=== PATIENT | female | born 1995 | race Caucasian/White ===

== ENCOUNTER 2019-08-02 19:10 | Observation (INO) | payer BC, OTHER ==
[2019-08-02 19:59] LABS: Appearance,Urine Clear (Clear); Bilirubin,Urine Negative (Negative); Blood,Urine Negative (Negative); Color,Urine Yellow; Glucose,Urine (UA) Negative (Negative); Ketones,Urine Negative (Negative); Leukocyte Esterase,Urine Negative (Negative); Nitrite,Urine Negative (Negative); PH, Urine 6.5 (5.0-8.0); Protein,Urine Negative (Negative); Specific Gravity,Urine 1.013 (1.001-1.035); Urobilinogen,Urine <2.0 mg/dL (<2.0)
[2019-08-02 20:50] LABS: Basophils % (A) 0 %; Eosinophils # (A) 0.1 k/uL (0-0.7); Eosinophils % (A) 1 %; HCT 35.7 % (34.0-46.0); HGB 11.7 gm/dL (11.4-16.0); Lymphocytes # (A) 2.4 k/uL (1.0-4.8); Lymphocytes % (A) 23 %; MCHC 32.8 g/dL (31.0-37.0); MCV 88.3 fL (80.0-100.0); Mean Platelet Volume 7.4; Monocytes # (A) 0.4 k/uL (0-1.0); Monocytes % (A) 3 %; Neutrophils # (A) 7.6 k/uL (1.3-7.7); Neutrophils % (A) 71 %; Platelet Count 293 k/uL (150-450); RBC 4.04 m/uL (3.80-5.40); WBC 10.7 k/uL (3.8-10.6)
[2019-08-02 21:04] LABS: African American GFR (CKD) >90 (>60 ml/min/1.73 sqM); Non-African American GFR(CKD) >90 (>60 ml/min/1.73 sqM)
[2019-08-02 22:26] LABS: Blood Urea Nitrogen 4 mg/dL (7-17)
[2019-08-02 22:27] LABS: ALT 16 U/L (4-34); AST 22 U/L (14-36); LDH 502 U/L (313-618); Uric Acid 2.2 mg/dL (3.7-7.4)
--- NOTE | 2019-08-02 22:37 | P.HPOB ---
History of Present Illness H&P Date: 08/02/19 Chief Complaint: Intrauterine at 34 weeks: Gestational hypertension Patient is a 23-year-old G 2 P1 at 34 weeks 5 days gestation who called complaining of a mild headache that was not improving through the day and when she checked her blood pressure at home she noted it was 150/113. She was instructed to report immediately to labor and delivery for evaluation. Upon arriving to labor and delivery blood pressures were all minimally elevated in the range of 140/90-100. She has no other signs or symptoms of preeclampsia. She denies headache at this time. No epigastric pain or visual changes deep tendon reflexes are 2+. Preeclamptic labs were drawn and essentially were all normal. She does have protein creatinine ratio of 0.2 which is also normal. As precaution with new onset gestational hypertension with no other findings we are admitting her overnight for continued blood pressure evaluation and if everything is normal most likely she will be discharged to home in the morning. All questions are answered for her at this time and she understands current condition and treatment plan. In discussing course with her she relates that she is had no other problems with the and has not previously had any elevations in her blood pressure. She does relate that she is late care. She also is noted to have suspected preeclampsia with her last at 39 weeks in which she had elevated blood pressure and 3+ protein in her urine. This is another reason why we are being very cautious with her in admitting her to the hospital. On physical exam her vital signs are currently stable with minimal elevation blood pressure. Heart regular, lungs clear, extremities without pain. Abdomen is soft and nontender. Positive bowel sounds are noted. Gravid uterus noted. heart tones reveal a category 1 tracing. Assessment intrauterine at 34 weeks 5 days gestation with new onset gestational hypertension [facility] Past Medical History Past Medical History: No Reported History Additional Past Medical History / Comment(s): Obstetric history: Oneg, abs neg, Rub Imm, RPR NR, Hep B neg. EDC 6-9-14 by 17 week US. declined quad. neg GBS and normal 1hr GTT. History of Any Multi-Drug Resistant Organisms: None Reported Past Surgical History: No Surgical Hx Reported Smoking Status: Never smoker - Past Family History Father Family Medical History: Blood Disorder Additional Family Medical History / Comment(s): blood clotting disorder Medications and Allergies Allergies Allergy/AdvReac Type Severity Reaction Status Date / Time No Known Allergies Allergy Verified 08/02/19 19:35 Exam Osteopathic Statement: *. No significant issues noted on an osteopathic structural exam other than those noted in the History and Physical/Consult. Vital Signs Temp Pulse Resp BP Pulse Ox 08/02/19 22:07 97.6 F 90 16 155/87 98 Intake and Output 08/02/19 08/02/19 08/02/19 06:59 14:59 22:59 Other: Weight 87.543 kg - OBG Physical Exam Breast: both: normal (no masses) Abdomen: bowel sounds normal, no diffuse tenderness, no bruit present, no guarding noted, no hepatomegaly, no splenomegaly, no mass Vulva: both: normal Vagina: normal moisture, no discharge Cervix: no lesion, no discharge Uterus: normal size, normal contour Adnexa: both: normal Anus/Rectum: normal perianal skin, no rectal mass, no hemorrhoids, heme negative Results Result Diagrams: 08/02/19 20:25 08/02/19 20:25 Abnormal Lab Results - Last 24 Hours (Table) 08/02/19 08/02/19 08/02/19 Range/Units 19:25 20:25 20:25 WBC 10.7 H (3.8-10.6) k/uL BUN 4 L (7-17) mg/dL Creatinine 0.49 L (0.52-1.04) mg/dL Uric Acid 2.2 L (3.7-7.4) mg/dL U Random Total Protein 16 H (<12) mg/dL
[2019-08-03 08:04] VITALS: BP 135/83; PULSE 86; RESP 16; TEMP 98.9
[2019-08-03] MEDS ORDERED: BETAMET ACET-BETAMETH SOD PHOS 6 MG/ML VIAL IM SCH (08:15)
--- NOTE | 2019-08-03 09:21 | US ---
EXAMINATION TYPE: US OB limited DATE OF EXAM: 08/03/2019 COMPARISON: NONE CLINICAL HISTORY: gestational hypertension-need HANNA and EFW. Hypertension, 2, para 1 EXAM PERFORMED: Transabdominal (TA) GESTATIONAL AGE / DATING Physician Established: (34 weeks/6 days) EDC: 09/08/2019 Dates by Current Scan: (33 weeks/2 days) EDC: 09/19/2019 SURVEY HANNA: 10.5 cm Normal Ultrasound evidence of premature rupture of membranes? no HEART RATE: 135 bpm RHYTHM: Normal BPD: 8.7 cm 35 weeks / 1 days HC: 31.7 cm 35 weeks / 4 days AC: 27.6 cm 31 weeks / 5 days FL: 6.3 cm 32 weeks / 4 days ESTIMATED WEIGHT IN GRAMS: 2019 grams ESTIMATED WEIGHT IN LBS/OZ: 4 lbs. 7 oz. WEIGHT PERCENTAGE BASED ON ESTABLISHED DATES: 4.7% Live single IUP measuring 33 weeks 2 days with a heart rate of 135bpm and an estimated delivery date of 09/19/2019. IMPRESSION: Single live intrauterine with a sonographic age of 33 weeks and 2 days and est imated date of delivery of 09/19/2019. Heart rate of 135 bpm. Amniotic fluid index is within normal li mits. Weight percentage based on established dates of only 4.7%. Estimated weight of 4 pounds a nd 7 ounces.
--- NOTE | 2019-08-04 08:26 | P.DS ---
Providers Date of admission: 08/02/19 22:32 Expected date of discharge: 08/03/19 Attending physician: Sang Meredith Primary care physician: Amanda Colmenares - Discharge Diagnosis(es) (1) Gestational hypertension Status: Acute Hospital Course: Patient was admitted for elevated blood pressures and rule out preeclampsia. Her preeclamptic labs were normal and her headache did resolve. Her blood pressures normalized to 130s over 80s when she was here. She was given one dose of Celestone and did have an ultrasound that showed normal amounts of fluid. She will come again tomorrow for her second dose of Celestone and a blood pressure check and NST. She is discharged home today with the understanding of signs and symptoms of preeclampsia and that she is to return to hospital with any of these. She'll follow up tomorrow and then again on Wednesday. Patient Condition at Discharge: Good Plan - Discharge Summary Discharge Disposition: HOME SELF-CARE
== END 2019-08-03 11:05 | disposition home or self-care (01) ==
LOC: FBPOP 19:10 → 4FBP 22:32
PROVIDERS: ADMIT Obstetrics & Gynecology; ATTEND Obstetrics & Gynecology
DX: O13.3 Gestational [pregnancy-induced] hypertension without significant proteinuria, third trimester (principal); Z3A.34 34 weeks gestation of pregnancy; Z83.2 Family history of diseases of the blood and blood-forming organs and certain disorders involving the immune mechanism
CPT/HCPCS: 59025; 99215; 96372; 82570; 84156; 82565; 83615; 84450; 84460; 84520; 84550; 85025; 81003; 76815; G0378 ×2; J0702

== ENCOUNTER 2019-08-04 08:31 | Outpatient (CLI) | payer BC ==
[2019-08-04] MEDS ORDERED: BETAMET ACET-BETAMETH SOD PHOS 6 MG/ML VIAL IM SCH (08:45)
[2019-08-04 09:56] VITALS: BP 141/91; PULSE 122; RESP 14; TEMP 97.5
--- NOTE | 2019-08-08 17:06 | P.MSEPDOC ---
Presenting Problems - Arrival Data Date of Arrival on Unit: 08/04/19 Time of Arrival on Unit: 09:12 Mode of Transport: Ambulatory - Complaint OB-Reason for Admission/Chief Complaint: NST, Celestone Injection Medical History - Information : 2 Para: 1 Term: 1 : 0 Abortions: Spontaneous or Elective: 0 Number of Living Children: 1 - Gestational Age Gestational Age by LAURYN (wks/days): 35 Weeks and 0 Days Review of Systems - Review of Systems Constitutional: No problems Breast: No problems ENT: No problems Cardiovascular: No problems Respiratory: No problems Gastrointestinal: No problems Genitourinary: No problems Musculoskeletal: No problems Neurological: No problems Skin: No problems Vital Signs - Temperature Temperature: 97.5 F Temperature Source: Tympanic - Pulse Right Brachial Pulse Rate: 122 Pulse Assessment Method: Automatic Cuff - Respirations Respiratory Rate: 14 Oxygen Delivery Method: Room Air - Blood Pressure Right Arm Blood Pressure: 141/91 Blood Pressure Mean: 107 Blood Pressure Source: Automatic Cuff Medical Screen Scoring (Pre) - Cervical Exam Dilation: Exam Deferred Effacement: Exam Deferred Membranes: Intact - Uterine Contractions Frequency: N/A Duration: N/A Intensity: N/A - Maternal Vital Signs Maternal Temperature: N/A Maternal Blood Pressure: N/A Signs of Preeclampsia: N/A Maternal Respirations: N/A - Maternal Trauma Maternal Trauma: N/A - Assessment - Baby A Baseline FHR: 135 Heart Rate - NICHD Category: Category I (Normal) = 0 NST: Reactive Position: N/A Station: N/A - Total Score - Baby A Total Score - Baby A: 0 - Total Score - Baby B Total Score - Baby B: 0 - Total Score - Baby C Total Score - Baby C: 0 - Level of Risk - Baby A Level of Risk - Baby A: Low (0-5) - Level of Risk - Baby B Level of Risk - Baby B: Low (0-5) - Level of Risk - Baby C Level of Risk - Baby C: Low (0-5) Physician Notification (Pre) - Physician Notified Physician Notified Date: 08/04/19 Physician Notified Time: 09:12 New Order Received: Yes - Notification Comment Comment: d/c home,. follow up pressures, 122/62 and 132/86 before discharge Disposition - Disposition OB Disposition: Discharge to home Discharge Date: 08/04/19 Discharge Time: 09:16 I agree with the RN Medical Screening Exam: Yes Risk & Benefit of care provided described in d/c instruction: Yes Diagnosis: LABOR WITHOUT DELIVERY, THIRD TRIMESTER
== END 2019-08-04 09:16 | disposition home or self-care (01) ==
LOC: FBPOP 08:31
PROVIDERS: ATTEND Obstetrics & Gynecology
DX: O60.03 Preterm labor without delivery, third trimester (principal); Z3A.35 35 weeks gestation of pregnancy
CPT/HCPCS: 59025; 96372; J0702; 99213

== ENCOUNTER 2019-08-21 05:58 | Inpatient (IN) | payer BC ==
[2019-08-21] MEDS ORDERED: METHYLERGONOVINE 0.2 MG/ML 1 ML AMP IM PRN (06:06)
[2019-08-21] MEDS ORDERED: TERBUTALINE 1 MG/ML VIAL SQ PRN (06:06)
[2019-08-21] MEDS ORDERED: OXYTOCIN 10 UNIT/ML 1 ML VIAL IM PRN (06:06)
[2019-08-21] MEDS ORDERED: LIDOCAINE 0.5% (PF) 5 MG/ML (50 ML SDV) SQ PRN (06:06)
[2019-08-21] MEDS ORDERED: CARBOPROST TROMETHAMINE 250 MCG/ML 1 ML AMP IM PRN (06:06)
[2019-08-21] MEDS ORDERED: OXYTOCIN 30 UNITS/500 ML NS 30 UNIT in SALINE 1 500ML.BAG IV SCH (06:15)
[2019-08-21] MEDS: LACTATED RINGERS 1,000 ML IV SCH ×2 (06:34→11:23)
[2019-08-21 07:29] LABS: Basophils % (A) 0 %; Eosinophils # (A) 0.1 k/uL (0-0.7); Eosinophils % (A) 1 %; HCT 38.3 % (34.0-46.0); HGB 12.3 gm/dL (11.4-16.0); Lymphocytes # (A) 2.4 k/uL (1.0-4.8); Lymphocytes % (A) 20 %; MCHC 32.2 g/dL (31.0-37.0); MCV 86.8 fL (80.0-100.0); Mean Platelet Volume 7.4; Monocytes # (A) 0.4 k/uL (0-1.0); Monocytes % (A) 4 %; Neutrophils # (A) 8.9 k/uL (1.3-7.7); Neutrophils % (A) 74 %; Platelet Count 331 k/uL (150-450); RBC 4.41 m/uL (3.80-5.40); RDW 14.4 % (11.5-15.5)
[2019-08-21] MEDS ORDERED: fentaNYL (PF) 50 MCG/ML 5 ML AMP ONE (11:10)
[2019-08-21] MEDS ORDERED: SODIUM CHLORIDE 0.9% 100 ML BAG ONE (11:10)
[2019-08-21] MEDS ORDERED: ROPIVACAINE 5MG/ML 20ML VIAL ONE (11:10)
--- NOTE | 2019-08-21 18:40 | P.HPOB ---
History of Present Illness H&P Date: 08/21/19 Chief Complaint: Induction of labor 23 year old presents at 37 weeks 3 days for induction of labor for gestational hypertension. HEr cervix is 1-2/80/-2. SHe is not randell. heart tones 130 with moderate variability and reactive. Review of Systems All systems: negative Constitutional: Denies chills, Denies fever Eyes: denies blurred vision, denies pain Ears, nose, mouth and throat: Denies headache, Denies sore throat Cardiovascular: Denies chest pain, Denies shortness of breath Respiratory: Denies cough Gastrointestinal: Denies abdominal pain, Denies diarrhea, Denies nausea, Denies vomiting Genitourinary: Denies dysuria, Denies hematuria Musculoskeletal: Denies myalgias Integumentary: Denies pruritus, Denies rash Neurological: Denies numbness, Denies weakness Psychiatric: Denies anxiety, Denies depression Endocrine: Denies fatigue, Denies weight change Past Medical History Past Medical History: No Reported History Additional Past Medical History / Comment(s): Obstetric history: First was a vaginal delivery. This is her second and she had care with me since 26 weeks. Oneg, abs neg, Rub Imm, RPR NR, Hep B neg. normal 1hr. History of Any Multi-Drug Resistant Organisms: None Reported Past Surgical History: No Surgical Hx Reported Past Anesthesia/Blood Transfusion Reactions: No Reported Reaction Past Psychological History: No Psychological Hx Reported Smoking Status: Never smoker Past Alcohol Use History: None Reported Past Drug Use History: None Reported - Past Family History Father Family Medical History: Blood Disorder Additional Family Medical History / Comment(s): blood clotting disorder Medications and Allergies Home Medications Medication Instructions Recorded Confirmed Type No Known Home Medications 08/04/19 08/21/19 History Allergies Allergy/AdvReac Type Severity Reaction Status Date / Time No Known Allergies Allergy Verified 08/21/19 06:06 Exam Osteopathic Statement: *. No significant issues noted on an osteopathic structural exam other than those noted in the History and Physical/Consult. Vital Signs Temp Pulse Resp BP Pulse Ox 08/21/19 06:11 98.9 F 106 H 18 140/99 97 Intake and Output 08/21/19 08/21/19 08/21/19 06:59 14:59 22:59 Other: # Voids 0 Weight 88.451 kg Heart: Regular rate and rhythm Lungs: Clear to auscultation bilaterally Abdomen: Soft, nontender Extremities: Negative Homans sign Results Result Diagrams: 08/21/19 06:10 Abnormal Lab Results - Last 24 Hours (Table) 08/21/19 Range/Units 06:10 WBC 12.0 H (3.8-10.6) k/uL Neutrophils # 8.9 H (1.3-7.7) k/uL Assessment and Plan (1) Gestational hypertension Current Visit: No Status: Acute Code(s): O13.9 - GESTATIONAL HTN W/O SIGNIFICANT PROTEINURIA, UNSP TRIMESTER SNOMED Code(s): 413979240 Plan: 1. induction of labor with amniotomy and pitocin. 2. anticipate normal vaginal delivery
[2019-08-21] MEDS ORDERED: ACETAMINOPHEN TAB 325 MG TAB PO PRN (21:07)
[2019-08-21] MEDS ORDERED: diphenhydrAMINE 50 MG CAP PO PRN (21:07)
[2019-08-21] MEDS ORDERED: WITCH HAZEL 1 EACH MED..PAD TOPICAL PRN (21:07)
[2019-08-21] MEDS ORDERED: ZOLPIDEM 5 MG TAB PO PRN (21:07)
[2019-08-21] MEDS ORDERED: diphenhydrAMINE 25 MG CAP PO PRN (21:07)
[2019-08-21] MEDS ORDERED: HYDROCORTISONE 2.5% RECTAL CREAM 30 GM TUBE RECTAL PRN (21:07)
[2019-08-21] MEDS ORDERED: Rhogam IMMUNE GLOBULIN 1,500 UNIT/1 ML IM ONE (21:07)
[2019-08-21] MEDS ORDERED: BENZOCAINE/MENTHOL SPRAY 1 GM/SPRAY AEROSOL TOPICAL PRN (21:07)
[2019-08-21] MEDS ORDERED: diphenhydrAMINE 50 MG/ML 1 ML VIAL IVP PRN ×2 (21:07)
[2019-08-21] MEDS ORDERED: SIMETHICONE 80 MG CHEWABLE PO PRN (21:07)
[2019-08-21] MEDS ORDERED: LANOLIN CREAM 5 GM TUBE TOPICAL PRN (21:07)
[2019-08-21] MEDS ORDERED: OXYTOCIN 20 UNITS/1000 ML NS 1,000 ML IV SCH (21:15)
[2019-08-21] MEDS: IBUPROFEN 600 MG TAB PO PRN (21:45)
[2019-08-22] MEDS: IBUPROFEN 600 MG TAB PO PRN ×3 (04:43→19:11)
[2019-08-22] MEDS: SENNOSIDES-DOCUSATE SODIUM 1 EACH TAB PO SCH ×2 (09:00→20:41)
[2019-08-22 10:10] LABS: Basophils % (A) 0 %; Eosinophils % (A) 0 %; HCT 35.4 % (34.0-46.0); HGB 11.6 gm/dL (11.4-16.0); Lymphocytes # (A) 1.6 k/uL (1.0-4.8); Lymphocytes % (A) 13 %; MCH 28.9 pg (25.0-35.0); MCHC 32.7 g/dL (31.0-37.0); MCV 88.3 fL (80.0-100.0); Mean Platelet Volume 7.5; Monocytes # (A) 0.4 k/uL (0-1.0); Monocytes % (A) 4 %; Neutrophils # (A) 9.7 k/uL (1.3-7.7); Neutrophils % (A) 82 %; Platelet Count 274 k/uL (150-450); RBC 4.01 m/uL (3.80-5.40); RDW 14.8 % (11.5-15.5); WBC 11.9 k/uL (3.8-10.6)
[2019-08-23] MEDS: IBUPROFEN 600 MG TAB PO PRN ×2 (01:32→08:02)
[2019-08-23] MEDS: SENNOSIDES-DOCUSATE SODIUM 1 EACH TAB PO SCH (08:01)
--- NOTE | 2019-08-23 08:05 | P.PROBDLV ---
Vaginal Delivery Note - . Vaginal Delivery Note: 23 year old presents at 37 weeks 3 days for induction of labor for gestational hypertension. Her cervix is 1-2/80/-2. SHe is not randell. heart tones 130 with moderate variability and reactive. Pitocin was started. Amniotomy was performed at 7:55 AM and clear fluid was noted. She progressed slowly throughout the day and did get an epidural when she was uncomfortable. Her cervix was completely dilated around 7:30 PM. She pushed, delivered a viable male over intact perineum under epidural anesthesia at 2048. Head delivered in a brow presentation mentum anterior to the right. Nose and mouth bulb suctioned, cord clamped cut, infant handed off to waiting nurses. Apgars 7, 8, weight 5 pounds 4.8 ounces. Placenta delivered spontaneously, intact with three-vessel cord at 2050. Vagina, cervix, perineum inspected. First-degree midline laceration was repaired with 3-0 Vicryl. Estimated blood loss 100 mL. Mother and baby in stable condition.
--- NOTE | 2019-08-23 08:07 | P.PNOBGVD ---
Subjective - Subjective Principal diagnosis: Status post normal vaginal delivery day #1 Interval history: Patient seen and examined. Denies nausea, vomiting, chest pain, shortness of breath or calf pain. Patient reports: Reports appetite normal, Reports voiding normally, Reports pain well controlled, Reports ambulating normally Objective - Latest Vital Signs Latest vital signs: Vital Signs Temp Pulse Resp BP Pulse Ox 08/22/19 23:38 97.7 F 90 16 134/78 08/22/19 14:53 97.6 F 105 H 17 128/93 97 Intake and Output 08/22/19 08/23/19 08/23/19 22:59 06:59 14:59 Other: # Voids 1 1 - Exam Lungs: bilateral: normal Chest: Normal S1, Normal S2 Extremities: Present: normal Abdomen: Present: normal appearance, soft Uterus: Present: normal, firm - Labs Labs: Abnormal Lab Results - Last 24 Hours (Table) 08/22/19 Range/Units 09:25 WBC 11.9 H (3.8-10.6) k/uL Neutrophils # 9.7 H (1.3-7.7) k/uL Assessment and Plan (1) Gestational hypertension Current Visit: No Status: Suspected Code(s): O13.9 - GESTATIONAL HTN W/O SIG NIFICANT PROTEINURIA, UNSP TRIMESTER SNOMED Code(s): 789692441 (2) Status post normal vaginal delivery Current Visit: Yes Status: Acute Code(s): [id number] - SNOMED Code(s): 685401877 Plan: 1. Increase ambulation 2. Continue care
--- NOTE | 2019-08-23 08:08 | P.DS ---
Providers Date of admission: 08/21/19 05:58 Expected date of discharge: 08/23/19 Attending physician: Amanda Colmenares Primary care physician: Stated None - Discharge Diagnosis(es) (1) Gestational hypertension Current Visit: No Status: Suspected (2) Status post normal vaginal delivery Current Visit: Yes Status: Acute Hospital Course: Patient presented for induction of labor for gestational hypertension. She did deliver vaginally through brow presentation. her course was u ncomplicated. She will be discharged home day #2 in stable condition to follow-up with me in 6 weeks. Plan - Discharge Summary New Discharge Prescriptions: New Ibuprofen [Motrin] 600 mg PO Q6HR PRN #30 tab PRN Reason: Mild Pain Or Fever >= 100.5 Discharge Medication List Ibuprofen [Motrin] 600 mg PO Q6HR PRN #30 tab 08/23/19 [Rx] Follow up Appointment(s)/Referral(s): Amanda Colmenares DO [Doctor of Osteopathic Medicine] - 6 Weeks Discharge Disposition: HOME SELF-CARE
[2019-08-23 09:43] VITALS: BP 134/85; PULSE 80; RESP 18; TEMP 97.9
== END 2019-08-23 13:00 | disposition home or self-care (01) | DRG 807 ==
LOC: 4FBP 05:58
PROVIDERS: ADMIT Obstetrics & Gynecology; ATTEND Obstetrics & Gynecology
PROC: 10E0XZZ Delivery of Products of Conception, External Approach (ICD-10-PCS; principal; 2019-08-21)
PROC: 10907ZC Drainage of Amniotic Fluid, Therapeutic from Products of Conception, Via Natural or Artificial Opening (ICD-10-PCS; 2019-08-21)
PROC: 0HQ9XZZ Repair Perineum Skin, External Approach (ICD-10-PCS; 2019-08-21)
PROC: 3E033VJ Introduction of Other Hormone into Peripheral Vein, Percutaneous Approach (ICD-10-PCS; 2019-08-21)
DX: O13.4 Gestational [pregnancy-induced] hypertension without significant proteinuria, complicating childbirth (principal); Z37.0 Single live birth; O32.3XX0 Maternal care for face, brow and chin presentation, not applicable or unspecified; O70.0 First degree perineal laceration during delivery; Z3A.37 37 weeks gestation of pregnancy; Z83.2 Family history of diseases of the blood and blood-forming organs and certain disorders involving the immune mechanism
CPT/HCPCS: 85025; 86850; 86870; 86880; 86900; 86901; 88307

== ENCOUNTER → 2021-04-02 | Outpatient (CLI) | payer BC | END | disposition home or self-care (01) | LOC: LABWHC1 09:41 | PROVIDERS: ATTEND Obstetrics & Gynecology | DX: N92.6 Irregular menstruation, unspecified (principal) | CPT/HCPCS: 36415; 84702 ==